=== PATIENT | male | born 1995 | race Caucasian/White ===

== ENCOUNTER 2016-08-26 21:56 | Inpatient (IN) | payer SELFPAY ==
[~2016-08-26] VITALS: Ht 182.9 cm; Wt 79.8 kg
[2016-08-26 23:10] LABS: BASO % 0.1 % (0.2-1.2); EOS # 0.1 10_X3_uL (0.0-0.5); EOS % 0.4 % (0.8-7.0); GRAN # 13.1 10_X3_uL (1.8-5.4); HEMATOCRIT 46.6 % (40-51); LYMPH # 2.8 10_X3_uL (1.3-3.6); LYMPH % 15.9 % (21.8-53.1); MEAN CORPUSCULAR HEMOGLOBIN 31.3 pg (27.0-33.0); MEAN CORPUSCULAR HGB CONC 34.3 g/dL (32.0-36.0); MEAN CORPUSCULAR VOLUME 91.2 fL (79-92); MEAN PLATELET VOLUME 9.2 fl (7.5-11.5); MONO # 1.7 10_X3_uL (0.3-0.8); MONO % 9.6 % (5.3-12.2); PLATELET COUNT 243 x10_3/uL (163-337); RED BLOOD COUNT 5.11 x10_6/uL (4.6-6.1); RED CELL DISTRIBUTION WIDTH 13.3 % (11.6-14.4); WHITE BLOOD COUNT 17.8 x10_3/uL (4.2-9.1)
[2016-08-26 23:21] LABS: ALBUMIN 4.6 gm/dL (3.4-5.0); ALKALINE PHOSPHATASE 94 U/L (50-136); ALT/SGPT 21 U/L (7.53-40.17); AST/SGOT 25 U/L (6.66-35.34); BLOOD UREA NITROGEN 20 mg/dL (7-18); CALCIUM 9.3 mg/dL (8.7-10.7); CARBON DIOXIDE 26 mmol/L (21-32); GLUCOSE,RANDOM 105 mg/dL (70-99); POTASSIUM 3.9 mmol/L (3.5-5.1); SODIUM 137 mmol/L (136-145); TOTAL PROTEIN 7.5 gm/dL (6.4-8.2)
[2016-08-27 07:26] LABS: ALBUMIN 3.7 gm/dL (3.4-5.0); ALKALINE PHOSPHATASE 78 U/L (50-136); ALT/SGPT 16 U/L (7.53-40.17); AST/SGOT 18 U/L (6.66-35.34); BILIRUBIN,TOTAL 0.38 mg/dL (0.0-1.0); BLOOD UREA NITROGEN 14 mg/dL (7-18); CALCIUM 8.2 mg/dL (8.7-10.7); CARBON DIOXIDE 24 mmol/L (21-32); CREATININE 0.8 mg/dL (0.6-1.3); GLUCOSE,RANDOM 110 mg/dL (70-99); POTASSIUM 3.9 mmol/L (3.5-5.1); SODIUM 137 mmol/L (136-145); TOTAL PROTEIN 6.1 gm/dL (6.4-8.2)
[2016-08-28 07:13] LABS: HEMATOCRIT 43.6 % (40-51); HEMOGLOBIN 14.6 g/dL (13.7-17.5); MEAN CORPUSCULAR HEMOGLOBIN 30.9 pg (27.0-33.0); MEAN CORPUSCULAR HGB CONC 33.5 g/dL (32.0-36.0); MEAN CORPUSCULAR VOLUME 92.4 fL (79-92); MEAN PLATELET VOLUME 9.3 fl (7.5-11.5); RED BLOOD COUNT 4.72 x10_6/uL (4.6-6.1); RED CELL DISTRIBUTION WIDTH 13.2 % (11.6-14.4); WHITE BLOOD COUNT 14.6 x10_3/uL (4.2-9.1)
[2016-08-28 07:27] LABS: BLOOD UREA NITROGEN 9 mg/dL (7-18); CALCIUM 8.7 mg/dL (8.7-10.7); CARBON DIOXIDE 25 mmol/L (21-32); CREATININE 0.8 mg/dL (0.6-1.3); GLUCOSE,RANDOM 128 mg/dL (70-99); POTASSIUM 4.1 mmol/L (3.5-5.1); SODIUM 140 mmol/L (136-145)
== END 2016-08-28 15:57 | disposition home or self-care (01) | DRG 603 ==
LOC: ER 21:56 → MS 23:52
PROVIDERS: General Practice; ADMIT Family Medicine
PROC: 0JJW0ZZ Inspection of Lower Extremity Subcutaneous Tissue and Fascia, Open Approach (ICD-10-PCS; principal; 2016-08-28)
DX: L03.115 Cellulitis of right lower limb (principal); R50.9 Fever, unspecified; S91.121A Laceration with foreign body of right great toe without damage to nail, initial encounter; W45.8XXA Other foreign body or object entering through skin, initial encounter; Y92.828 Other wilderness area as the place of occurrence of the external cause; Z88.0 Allergy status to penicillin; Z88.2 Allergy status to sulfonamides; F17.210 Nicotine dependence, cigarettes, uncomplicated
CPT/HCPCS: 36415; 73630; 80048; 80053; 80202; 83605; 85025; 87040; 87070; 87186; 90471; 90715; 96365; 96366; 99070; 99284; 99284-25; J3370; J7050; Q0169